=== PATIENT | female | born 1970 | race Caucasian/White ===

== ENCOUNTER 2024-02-06 03:01 | Outpatient (CLI) | payer BC, SELFPAY ==
[2024-02-06 15:09] LABS: HCT 41.4 % (36.0-46.0); HGB 14.1 g/dL (11.2-15.7); MCH 32.5 pg (27.0-33.0); MCHC 34.1 % (32.0-36.0); MCV 95 fL (80-95); MPV 9.4 fL (8.0-11.0); Platelet Count 190 10^3/uL (130-400); RBC 4.34 10^6/uL (3.93-5.22); RDW 12.1 % (11.7-14.6); RDW-SD 42.4 fL; WBC 5.73 10^3/uL (4.4-10.8)
[2024-02-06 16:11] LABS: Anion Gap 6.1 mmol/L (3-11); BUN 10 mg/dL (7-18); CO2 29.9 mmol/L (21.0-32.0); CREATININE 0.8 mg/dL (0.55-1.02); Calcium 8.6 mg/dL (8.5-10.1); Chloride 105 mmol/L (98-107); Estimated GFR 88.05 (mL/min/1.73m2); Glucose 92 mg/dL (74-106); Potassium 4.5 mmol/L (3.5-5.1); Sodium 141 mmol/L (136-145)
== END 2024-02-06 03:02 | disposition home or self-care (01) ==
LOC: LBO 03:01
PROVIDERS: Visit Provider Student in an Organized Health Care Education/Training Program
DX: M94.251 Chondromalacia, right hip (principal); Z01.818 Encounter for other preprocedural examination
CPT/HCPCS: 36415; 80048; 85027

== ENCOUNTER 2024-02-21 05:53 | Day surgery (SDC) | payer BC, SELFPAY ==
[2024-02-21] VITALS (13 sets, daily range): BP systolic 91–121; BP diastolic 54–80; PULSE 71–86; RESP 11–17; TEMP 36.2–36.5; O2SAT 98–100; BMI 23.9
[2024-02-21] MEDS: Lactated Ringers 1,000 ML 80 ML IV (06:36)
[2024-02-21] MEDS: Celecoxib 200 MG CAP 400 MG PO (06:37)
[2024-02-21] MEDS: Acetaminophen 500 MG TAB 1000 MG PO (06:37)
--- NOTE | 2024-02-21 06:47 | W.ANESPRE ---
General Info Date of Service Date Performed: 02/21/24 Height: 5 ft 7 in Weight: 69.4 kg Body Mass Index (BMI): 23.9 Surgical Procedure: Operation Date: 02/21/24 07:50 Proposed Procedure Side Surgeon p Hip Total Hip Anterior Right Aldair Gardiner MD Meds Allergies and Home Medications Allergies Allergy/AdvReac Type Severity Reaction Status Date / Time Penicillins Allergy Other (See Verified 02/21/24 06:30 Comment) Home Medication Medication Instructions Recorded levonorgestrel 21 mcg/24 hr (up to 1 device intrauterine ONCE 11/17/23 8 years) 52 mg intrauterine device (Mirena) meloxicam 7.5 mg tablet 15 mg PO DAILY 11/17/23 cyclobenzaprine 10 mg tablet 10 mg PO BID PRN 02/06/24 Current Visit Medications: Current Medications Generic Name Dose Route Start Last Admin Trade Name Freq PRN Reason Stop Dose Admin Acetaminophen 1,000 mg 02/21/24 06:00 02/21/24 06:37 Acetaminophen 500 Mg Tab PO 02/21/24 23:59 1,000 mg PREOP URVASHI Administration Celecoxib 400 mg 02/21/24 06:00 02/21/24 06:37 Celecoxib 200 Mg Cap PO 02/21/24 23:59 400 mg PREOP URVASHI Administration Ringer's Solution 1,000 mls @ 80 mls/hr 02/21/24 06:00 02/21/24 06:36 IV 02/21/24 23:59 80 mls/hr INFUSION URVASHI Administration Cefazolin Sodium/Dextrose 2 gm in 50 mls @ 100 mls/hr 02/21/24 06:00 Ancef Duplex IVPB 02/21/24 23:59 PREOP URVASHI Tranexamic Acid/Sodium Chloride 1,000 mg in 100 mls @ 600 mls/hr 02/21/24 06:00 IVPB 02/21/24 23:59 PREOP URVASHI IV Miscellaneous Supplies 1 each 02/21/24 06:00 Iv Access IV 02/21/24 23:59 DIRECTED URVASHI Sodium Chloride 0 ml 02/21/24 06:00 Normal Saline Flush 10 Ml Syr IV 02/21/24 23:59 PRN PRN Sodium Chloride 0 ml 02/21/24 06:00 Normal Saline 10 Ml Vial IJ 02/21/24 23:59 DIRECTED PRN Sterile Water 0 ml 02/21/24 06:00 Water,Injection,Sterile 10 Ml Vial IJ 02/21/24 23:59 DIRECTED PRN PFSH Active Problems Active Problems: Problem Status Onset Code Chondromalacia, 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 states her nephew has issues with anesthesia it affects his breathing somehow Surgical History Surgical History H/O myomectomy H/O LEEP History of breast biopsy Tobacco Smoking/Tobacco Use Status: Never Alcohol Alcohol Intake: current Alcohol intake frequency: a few times a week Substance Use Substance use: Never Substance use type: does not use Vital Signs and Lab Results Vital Signs Most Recent Vital Signs in EMR: Most Recent Vital Signs Temp Pulse Resp BP Pulse Ox 36.5 C 79 16 117/80 100 02/21/24 06:31 02/21/24 06:31 02/21/24 06:31 02/21/24 06:31 02/21/24 06:31 Point of Care Results Point of Care Results: POC- Test(urine) Negative 02/21/24 06:40 Lab Results Blood Type / Crossmatch: No Data to Display Complete Blood Count: White Blood Count 5.73 10^3/uL (4.4-10.8) 02/06/24 15:00 Red Blood Count 4.34 10^6/uL (3.93-5.22) 02/06/24 15:00 Hemoglobin 14.1 g/dL (11.2-15.7) 02/06/24 15:00 Hematocrit 41.4 % (36.0-46.0) 02/06/24 15:00 Platelet Count 190 10^3/uL (130-400) 02/06/24 15:00 Complete Metabolic Panel: Sodium 141 mmol/L (136-145) 02/06/24 15:00 Potassium 4.5 mmol/L (3.5-5.1) 02/06/24 15:00 Chloride 105 mmol/L (98-107) 02/06/24 15:00 Carbon Dioxide 29.9 mmol/L (21.0-32.0) 02/06/24 15:00 BUN 10 mg/dL (7-18) 02/06/24 15:00 Creatinine 0.8 mg/dL (0.55-1.02) 02/06/24 15:00 Est GFR (CKD-EPI 2020) 88.05 (mL/min/1.73m2) 02/06/24 15:00 Calcium 8.6 mg/dL (8.5-10.1) 02/06/24 15:00 Glucose 92 mg/dL (74-106) 02/06/24 15:00 Liver Function Panel: No Data to Display Coagulation Panel: No Data to Display Cardiac Panel: No Data to Display Arterial Blood Gas: No Data to Display Venous Blood Gas: No Data to Display Pancreas Panel: No Data to Display Thyroid Panel: No Data to Display Infectious Disease: No Data to Display Blood Cultures: No Data to Display Toxicology Panel: No Data to Display Panel: No Data to Display Anesthesia Assessment and Plan Anesthesia History Personal History: No History of Anesthesia Complications Family History: No Family History of Anesthesia Complications and Other Exercise Tolerance Exercise Tolerance: Metabolic Equivalents>4 Pertinent Negatives Pertinent Negatives: No Symptoms of GERD Cardiac & Pulmonary Exam Cardiac Exam: Normal S1/S2 Heart Sounds Pulmonary Exam: Clear Bilateral Breath Sounds Implantable Cardiac Device Does patient have a Pacemaker or an ICD?: No Airway Exam Known Difficult Airway: No Mallampati Class: 1 Mouth Opening: Normal (> 3cm) Thyromental Distance: Greater than 3 cm Neck Range of Motion: Full ROM Neck Circumference: Normal Teeth Condition: Normal Dentition ASA Classification ASA Score: ASA 2 Emergency Case?: No NPO Status NPO Status: NPO Clears >2 hours, Solids >8 hours Status Status: Not Relevant due to Medical History Anesthesia Plan Resuscitation Status: Full Code Anesthesia Technique: Spinal Anesthesia Airway Planned: Natural Airway Monitors Used: Standard Monitors
--- NOTE | 2024-02-21 07:17 | PDOC.DSDIS_ITS ---
Date of service: 02/21/24 Time of Service: 07:24 Discharge Plan Disposition Patient Disposition: Home Condition: Good Discharge Details Reason For Visit: Right hip DJD Attending Provider: Aldair Gardiner Primary Care Provider: Unknown,Unknown Home Meds and New Rx's Prescriptions: New acetaminophen 500 mg tablet 1,000 mg PO Q8H PRN Qty: 90 0RF Rx Instructions: Take two tablets up to every 8 hours as needed for pain aspirin 81 mg tablet,delayed release (DR/EC) 81 mg PO BID 30 Days Qty: 60 0RF celecoxib [Celebrex] 200 mg capsule 200 mg PO BID PRNQty: 60 0RF Rx Instructions: Take one tablet twice daily for pain and inflammation dexamethasone 4 mg tablet 4 mg PO DAILY Qty: 2 0RF Rx Instructions: Take one tablet once daily for two days docusate sodium [Colace] 100 mg capsule 100 mg PO BID Qty: 30 0RF pantoprazole 40 mg tablet,delayed release (DR/EC) 40 mg PO DAILY Qty: 14 0RF oxycodone 5 mg tablet 5 mg PO Q6H PRNQty: 12 0RF Rx Instructions: Take one tablet up to every 6 hours as needed for severe postoperative pain Continued Mirena 21 mcg/24 hours (8 yrs) 52 mg intrauterine device 1 device intrauterine ONCE Rx Instructions: as a single dose cyclobenzaprine 10 mg tablet 10 mg PO BID PRN Discontinued meloxicam 7.5 mg tablet 15 mg PO DAILY Discharge Instructions Additional Instructions: Total Hip Discharge Instructions Activity: The most important activity is to walk. You should try to take short walks a few times a day. You have no restrictions on movement or positioning, but do not try to force what you do. You will find some stiffness and weakness with hip flexion (lifting your knee). Do not try to strengthen this too early, continue to practice walking and stairs and this will come. - Outpatient physical therapy can be helpful to help return you to a normal gait and improve your flexibility and strength. This can start around 2 weeks. For some patients, it?s not necessary. Usually this is determined at the time of discharge or at the first post-operative visit. - You should wear the DALIA hose on both legs for 2 weeks. Dressing: Keep the surgical dressing in place for at least one week. After the first week it may be removed and replace with light gauze and tape or nothing. It may get wet after 3 days but avoid soaking the dressing. If it gets wet, just lightly pat dry. It is important to always keep some gauze between skin folds, especially when you are sitting. Spend some time with the wound exposed when you are lying flat as the incision does wrinkle onto itself. Medications: - You should take Tylenol and an anti-inflammatory Celebrex as your primary pain control medications. If the Celebrex is too expensive or not covered, please call the office for another alternative (Advil/Ibuprofen or Naproxen/Aleve). - You have been prescribed a stronger pain medication Oxycodone for breakthrough pain, take as needed as prescribed. - You have also been prescribed a stomach acid reduction agent Pantoprozole to help reduce stomach acid and reflux. - You have also been prescribed Decadron to help with post-operative nausea and pain. You will take this for two days starting tomorrow. - You will be taking Aspirin 81mg twice a day for DVT prevention unless instructed otherwise. - If you have constipation you should take Colace (which has been prescribed) or Miralax (which is available [id number]). It takes most people 3-4 days to have a bowel movement. Follow-up: 2 weeks If you have any acute concerns or questions, please do not hesitate to contact the office at [phone]. You may contact Dr. Gardiner with any questions after hours through the hospital at [phone] or on his cell phone at [phone]. Referrals: Aldair Gardiner MD [ [facility] STAFF PHYSICIAN] - Equipment/Supplies: Walker Activity:: Activity as Tolerated Remove Dressings/Wound Care:: Do Not Remove Shower/Bathe:: Cover Diet:: As Tolerated Discharge Orders Discharge Orders: Discharge Order (Routine); Ordered 02/21/24 Ordered By: Disha Burgos
[2024-02-21] MEDS: ceFAZolin 2 GM/50 ML BAG IVPB (07:49)
[2024-02-21] MEDS: TRANEXAMIC ACID/SOD. CHL. 1,000 MG/100 ML BAG 600 MG IVPB (07:54)
--- NOTE | 2024-02-21 08:40 | DI.RAD_ITS ---
Exam(s) XR HIP RT IN OR EXAM: XR HIP RT IN OR CLINICAL HISTORY: Chondromalacia, right hip. TECHNIQUE: 2D and realtime digital imaging was performed. COMPARISON: No exams were available for comparison FINDINGS: Hard copy image shows placement of a right hip prosthesis which show satisfactory alignment. Please see procedure note for details. Fluoro time: 25.9seconds RADIATION DOSE DELIVERED: Ka,r=2.35 mGy
--- NOTE | 2024-02-21 09:08 | ROE_ITS ---
Date of service: 02/21/24 Time of Service: 07:45 Operative Note Operative Note DATE OF PROCEDURE: 02/21/24 PRE-OP DIAGNOSIS: Right Hip Osteoarthritis POST-OP DIAGNOSIS: same PROCEDURE: Right Anterior Total Hip Arthroplasty with Intraoperative Navigation SURGEON: Aldair Gardiner PIGS FEET FINISHER: Disha Burgos ANESTHESIA TYPE: Spinal Refer to Anesthesia Record ESTIMATED BLOOD LOSS: 100 PATHOLOGY: none sent TOURNIQUET TIME: 0 COMPLICATIONS: None Patient was transported to: PACU Patient's condition: stable Implants: 1. Depuy Midland Acetabular Component, 52mm 2. Depuy Acetabular Liner, [id number] 3. Depuy Actis Standard Collared Femoral Stem, Size 4 4. Depuy Altrx Ceramic Femoral Head, Size 36+5mm Indications: I have seen Disha in clinic for symptoms of hip arthritis, confirmed with radiographic findings. She has exhausted nonoperative methods and was having significant limitations in daily function and desired better function and less pain. I discussed the technical details of a hip replacement. I explained the risks of the procedure to include, but not limited to, bleeding, infection, pain, stiffness, fracture, damage to nerves and vessels, damage to muscles and tendons, loosening, instability, leg length inequality, need for repeat procedure, blood clot and cardiopulmonary demise. Despite these risks, she elected to proceed. Findings: There was notable chondromalacia of the superior acetabulum with a denuded area over the superior femoral head. Procedure Description: Disha was greeted in the preoperative holding area where the correct side was identified and marked. The consent was reviewed with the patient and signed. The history and physical was updated. All questions were answered. She was taken back to the operating room. A spinal anesthestic was then administered. The feet were wrapped with cast padding and Coban and then placed into the boot liners and then into the boots. Care was taken to protect the s kin and make sure the heels were fully down and the boots were stable. The patient was then positioned onto the HANA table. Both legs were held in a neutral position. SCDs were applied. The patient was then slid down onto a peroneal post. Prophylactic antibiotics in the form of Cefazolin were administered. 1g of Tranxemic Acid was given intravenously within 30 minutes of incision. The right leg was then prepped with Chloraprep and draped in a standard fashion. A second prep with Chloraprep was performed prior to placement of a shower-curtain type drape with Iodine impregnated skin pr otection. A timeout to confirm correct identity, side and site, procedure, allergies, anesthesia, and medical concerns was performed. An obliquely oriented incision was made starting lateral to the ASIS and running distal over the Tensor Fascia Adelina (TFL) muscle belly toward the fibular head, approximately 10cm. The skin and soft tissue was dissected sharply, through Ricarda?s fascia, and to the fascia of the TFL. With the fascia and superior border of the IT band identified, the fascia was incised with a new knife just above any perforators from the IT band. The TFL muscle belly was bluntly dissected away from the fascia and moved laterally. The fat between TFL and rectus was identified to ensure the dissection was not within the TFL. Blunt dissection created space between abductors and the capsule and retractor was placed over the lateral femoral neck. The fibers of the rectus femoris tendon were identified and these were freed from the anterior capsule. A second cobra retractor was placed around the medial femoral neck. The TFL was further retracted laterally to show the deep fascia. Careful dissection through this layer identified three main crossing vessels of the lateral femoral circumflex. These were cauterized in multiple locations and then cut without any noticeable bleeding. The TFL was further released bluntly from the deep fascia to expose anterior hip capsule and fat The Tommy orthopaedic retractor was then placed beneath the TFL and against sartorius and medial soft tissues to protect and retract the soft tissues. A T-capsulotomy was then performed starting at the superior lateral acetabulum and moving distally to the intertrochanteric ridge. These capsular flaps were tagged with a No. 1 Ethibond and elevated from within. The capsular flaps were released to the shoulder of the lateral neck and to the lesser trochanter to give excellent visualization of the proximal femur. A neck osteotomy was performed using an oscillating saw based on preoperative templates. This cut started in the shoulder and of the lateral neck and exited medially. The saw was at all times directed medially to avoid injury to the greater trochanter. Gross traction was applied to the leg and the osteotomy opened. The femoral head was removed with a corkscrew, making sure to protect the TFL on its exit. Traction was released after head removal. This was measured on the back table to determine the starting reamer size. Portions of the rectus obscuring visualization were minimally elevated off the superior acetabulum. An anterior retractor was placed over the anterior wall between capsule and labrum and attached to the Gripper retraction system. The femur was rotated to 90 degrees and medial capsule was fully released until the lesser trochanter was palpable and visible; the femur was returned to 30 degrees. A posterior retractor was placed similarly between capsule and labrum. This provided excellent visualization. The contents of the cotyloid fossa were removed with electrocautery and the labrum was removed with a knife. There was significant chondromalacia of the superior acetabulum. Acetabular reaming began with a 46mm reamer. This first reaming was directed anterior to posterior and medial to get down to the true floor. This was inspected and reamed until the true floor was reached. The anterior retractor was then released and entry and exit was provided by traction on the capsular flaps. I then reamed sequentially up to a 52mm reamer where good fit was obtained. The larger reamers were oriented based on anatomical reference of the anterior and lateral mcginnis to ensure proper abduction and anteversion. Positioning and size was confirmed with the fluoroscopy. A 52mm Depuy Midland acetabular component was selected. The acetabulum was reamed around the periphery with the selected acetabular size to prevent a rim fit. The deep tissues were irrigated. The acetabular component was then impacted in a position of about 40-45 degrees of abduction and 15-20 degrees of anteversion, using the patient?s anatomy as the ultimate landmark. Fluoroscopy was used to confirm this. There was excellent deputy district customs director of the acetabular component and the inserting handle was removed. The acetabular liner, Depuy [id number] polyethylene liner, was inserted and lined up with the tines of the acetabular component. There was no soft tissue interposition. The liner was then impacted into position and confirmed to be well-seated. A portion of the shayne-articular cocktail was then injected around the acetabulum into the capsule and periosteum. This cocktail consisted of 123mg of Ropivacaine, 0.25mg of Epinephrine, 0.04mg of Clonidine, and 15mg of Ketorolac, diluted to 50cc. The leg was rotated to 120 degrees. Any remaining medial capsule was released until the lesser trochanter was easily palpable. A retractor was placed medially. The lateral capsule was further released into the shoulder to allow access to the greater trochanter. A Jin retractor was placed over the greater trochanter which allowed the trochanter to flip in front of the capsule for excellent exposure. The leg was brought down into maximal extension and 20 degrees of adduction while ensuring there was no impingement on the acetabulum. Any remnant capsule within the trochanter was released. Piriformis and obturator externis were identified and protected. There was excellent access to the proximal femur. The lateral neck remnant was removed with a rongeur. A blunt canal probe was used to identify the canal and trajectory for later broaching. A box osteotome initiated the broach course. A small curved rasp and a curved curette were used to work laterally. Broaching then began with a starter Actis broach. This was inserted manually around the trochanter and into the canal before mallet blows. The broach was seated to a few millimeters below the cut level based on the neck cut and the preoperative template. Sequential broaching was continued with the Incentivese pneumatic broaching device until a tight fit was obtained with good rotational control of the femur. A trial standard neck was inserted along with a +1.5 trial head. The leg was brought out of extension and adduction and then reduced with traction and internal rotation. The leg was stable anteriorly in a position of 30 degrees of extension and 90 degrees of external rotation. Fluoroscopy was used to ensure there was no fracture and the stem was seated well. Leg lengths were checked with an AP pelvis and pelvic reference points. [employer] navigation system was used to confirm appropriate positioning and leg length and offset. This slightly undercorrected leg length and offset. Once content with the desired offset and leg lengths, the leg was brought back into extension, external rotation and adduction. The periosteum and surrounding tissue was injected with remaining portion of the shayne-articular cocktail. The proximal femur was irrigated as well as the deep tissues. The [employer] Actis standard collared stem, size 4, was then manually inserted into the proximal femur making sure to control rotation. It was then malleted into position with light blows, giving breaks to allow bone expansion and decrease risk of fracture. The selected Depuy Altrx Ceramic Head, size 36+5mm, was then placed onto the clean and dry trunnion and secured with impaction onto the tapered fit. The leg was brought back out of extension and adduction and reduced with traction and internal rotation. Stability was confirmed with no shuck at 90 degrees of external rotation and 30 degrees of extension. No impingement through range of motion arc. Final x-ray images were obtained with fluoroscopy to confirm adequate positioning and no intraoperative fracture. The deep tissues were thoroughly irrigated with Surgiphor, betadine solution. This was allowed to sit in the wound for 3 minutes before being thoroughly irrigated out with normal saline. The capsule was then reapproximated with the previously placed Ethibond sutures. The TFL fascia was finally closed with a No. 2 Stratafix, barbed suture. Deep tissues were then reapproximated with 0 Vicryl and a running 2-0 Vicryl. The skin was closed with a running 4-0 Monocryl in a subcuticular fashion. This was reinforced with skin glue. A Mepilex silver dressing was applied. At the end of the case, all counts were correct. Disha was transferred to the hospital bed without difficulty and suffering no apparent complication. Disha has a good prognosis. Physical therapy will start today and without restrictions, weight-bearing as tolerated. Aspirin 81mg BID will be used for DVT prophylaxis.
--- NOTE | 2024-02-21 10:05 | W.ANESPOSTOP ---
Postoperative Evaluation Date, Time and Location Date Performed: 02/21/24 Time Performed: 10:05 Patient Location: Day Surgery Unit Vital Signs Most Recent Imported Vital Signs: Most Recent Vital Signs Temp Pulse Resp BP Pulse Ox 36.4 C L 77 16 121/77 100 02/21/24 10:02 02/21/24 10:02 02/21/24 10:02 02/21/24 10:02 02/21/24 10:02 Pain Score Most Recent Pain Score: Most Recent Pain Score Pain Level 1 02/21/24 10:02 Assessment Mental Status: Awake (Alert & Oriented to Patient Baseline) Airway and Respiratory Function: Patent airway with normal (patient baseline) respiratory exam Cardiovascular Function: Hemodynamically Stable Hydration Status: Adequately Hydrated Nausea & Vomiting: No Nausea or Vomiting Pain: Pt. Denies Any Pain Peripheral Nerve Block: Patient did not receive a nerve block
[2024-02-21] MEDS: oxyCODONE 5 MG TAB PO (10:22)
--- NOTE | 2024-02-21 10:46 | PT.INIE ---
PT Notes Visit Reasons: Right hip DJD Physical Therapy Day Surgery Initial Evaluation Date: 02/21/24 Referring Doctor: EUSEBIO Rankin PT Orders: PT CONSULT: s/p ortho surgery Precautions: WBAT RLE s/p anterior COLE Patient Profile/Admitting Diagnosis: Patient seen in Day Surgery following right COLE, anterior approach, post op day #0. Social History/Home Situation: Lives in a private home with no steps to enter. Plans to stay on lower level initially, although bedroom is on second floor. Works as a teacher, currently on summer break. Equipment Owned/DME: [employer] Subjective: Catherine states that she is feeling good. She has soreness in the right hip, but her groin pain is resolved. She was able to walk to the bathroom with nursing earlier, and states that it went well. Objective: General Observation: Resting in chair, no lines. Mental Status: A&Ox3. Pleasant and cooperative. Pain: soreness ROM: Right Upper Extremity: WFL Left Upper Extremity: WFL Right Lower Extremity: Functionally demonstrates hip flexion to 90+ degrees. Full TKE right knee. Left Lower Extremity: WFL Strength: Right Upper Extremity: WFL Left Upper Extremity: WFL Right Lower Extremity: Hip flexion 3-/5. Quads 3/5 or greater. HS 3/5 or greater. Ankle DF 3/5 or greater. Left Lower Extremity: Hip flexion 5/5. Quads 5/5. HS 5/5. Ankle DF 3/5 or greater. Bed Mobility/Transfers: Sit to stand: supervision Stand to sit : supervision Gait: Ambulates 50'x2 with FWW, SBA. Demonstrates step to pattern, with limited reliance on FWW for support. Stairs: Manages 4 stairs, 3x1 with bilat UE support to rails and SBA. Instructed in step to pattern, with excellent carryover. Balance: Static Sitting: Good Dynamic Sitting: Good Static Standing: Good Dynamic Standing: Fair Special Tests: Mobility Limitations Standardized Measure [facility] AM-PAC 6 clicks Basic Mobility Inpatient Short Form: Raw Score: 23 CMS Score: 11% impairment Informed Consent/Education: Patient instructed in purpose of PT consult. Packet containing COLE exercise protocol has been given to patient. Education and training on initial set of exercises that can be done at home have been completed with patient. Assessment: Patient presents with clinical signs and symptoms consistent with current/admitting diagnoses that have resulted to mobility limitations, gait instability, generalized weakness, and impairment of motor control as demonstrated by the following impairment level findings: 1. Decreased strength to RLE major muscle groups 2. Impaired standing balance 3. Limitation of joint range of motion in right hip Impairments are contributing to the following functional limitations: 1. Inability to safely ambulate without assistive device 2. Increase completion time for mobility ADL performance 3. Increased fall risk Patient is assessed as a low complexity based on the following: History: 53-year-old female with impairment level findings, functional limitations, and past medical history as indicated above Examination: Demonstrable impairment in strength, balance, and mobility level with underlying impairments and functional limitations as documented above Presentation: evolving due to post-operative status Decision Making: low complexity Goals: N/A. Plan of Care/Treatment Plan: N/A. PT evaluation and treatment only for functional mobility training using recommended AD and for HEP instruction. DISCHARGE RECOMMENDATIONS: Home without equipment needs. TREATMENT CODE/TIME: [id number] ([id number]) Thank you for the opportunity to participate in the care of this patient. Please sign an return this page within 30 days if you agree with the above POC. Thank you! Physician Signature Date [facility] All Active Problems Chondromalacia, right hip (Chronic) Graves disease (Acute) Raynaud's disease (Acute) Medical History Actinic keratosis Surgical History H/O myomectomy H/O LEEP History of breast biopsy
== END 2024-02-21 11:20 | disposition home or self-care (01) ==
PROVIDERS: Visit Provider Student in an Organized Health Care Education/Training Program
PROC: (CPT 27130; principal; 2024-02-21 07:30)
DX: M16.11 Unilateral primary osteoarthritis, right hip (principal); M94.251 Chondromalacia, right hip; E05.00 Thyrotoxicosis with diffuse goiter without thyrotoxic crisis or storm; I73.00 Raynaud's syndrome without gangrene
CPT/HCPCS: 27130; 20985; 81025; 97161; 73501; C1776; J0690; J1100; J2001; J2250; J2371; J2401; J2405; J2704

== ENCOUNTER 2024-03-05 15:47 | Outpatient (CLI) | payer BC, SELFPAY ==
--- NOTE | 2024-03-05 10:15 | DI.RAD_ITS ---
Exam(s) XR HIP RT COMPLETE AP PELVIS EXAM: XR HIP RT COMPLETE AP PELVIS CLINICAL HISTORY: 1ST POST OP R COLE. TECHNIQUE: 2D digital imaging was performed. Two images were obtained. AP pelvis and lateral hip vi ews were obtained. COMPARISON: XA XR HIP RT IN OR from 02/21/2024 FINDINGS: BONES: There are stable post operative changes of a right total hip replacement present. No fracture or dislocation. JOINTS: The orthopedic hardware is in good position. No evidence of hardware loosening. SOFT TISSUE: There is an IUD in the pelvis. IMPRESSION: Stable right total hip replacement. DATA REPOSITORY: RADIATION DOSE DELIVERED:
== END 2024-03-05 15:48 | disposition home or self-care (01) ==
LOC: DIORS 15:47
PROVIDERS: Visit Provider Student in an Organized Health Care Education/Training Program
DX: Z96.641 Presence of right artificial hip joint (principal)
CPT/HCPCS: 73502

== ENCOUNTER 2024-09-27 14:13 | Outpatient (CLI) | payer BC, SELFPAY ==
--- NOTE | 2024-09-27 10:45 | DI.RAD_ITS ---
Exam(s) XR HIP RT AP LAT ONLY EXAM: XR HIP RT AP LAT ONLY CLINICAL HISTORY: S/P R COLE. TECHNIQUE: 2D digital imaging was performed. COMPARISON: CR XR HIP RT COMPLETE AP PELVIS from 03/05/2024 FINDINGS: Two views Stable position alignment of the components of the right hip prosthesis. No fracture or loosening ev ident. No evidence of osteomyelitis IMPRESSION: Stable satisfactory appearance of right hip prosthesis. DATA REPOSITORY: RADIATION DOSE DELIVERED:
== END 2024-09-27 14:14 | disposition home or self-care (01) ==
LOC: DIORS 14:13
PROVIDERS: Visit Provider Physician Assistant
DX: Z96.641 Presence of right artificial hip joint (principal); Z47.1 Aftercare following joint replacement surgery
CPT/HCPCS: 73502

== ENCOUNTER 2025-04-08 15:42 | Outpatient (CLI) | payer BC, SELFPAY ==
--- NOTE | 2025-04-08 15:15 | DI.RAD_ITS ---
Exam(s) XR HIP RT AP LAT ONLY EXAM: XR HIP RT AP LAT ONLY CLINICAL HISTORY: ANNUAL F/U R COLE. TECHNIQUE: 2D digital imaging was performed. COMPARISON: CR XR HIP RT AP LAT ONLY from 09/27/2024 FINDINGS: Two views /tract visualized of points of the prosthesis. No fracture or loosening evident. No evidence of osteomyelitis. IMPRESSION: Stable satisfactory appearance of the right hip prosthesis. DATA REPOSITORY: RADIATION DOSE DELIVERED:
== END 2025-04-08 15:43 | disposition home or self-care (01) ==
LOC: DIORS 15:42
PROVIDERS: Visit Provider Student in an Organized Health Care Education/Training Program
DX: Z96.641 Presence of right artificial hip joint (principal)
CPT/HCPCS: 73502